=== PATIENT | male | born 1955 | race Caucasian/White ===

== ENCOUNTER 2020-12-10 03:39 | Emergency (ER) | payer OTHER ==
[2020-12-10 04:36] LABS: Basophils % (Auto) 0.7 % (0.0-1.8); Eosinophils % (Auto) 0.7 % (0.0-4.3); Hematocrit 40.5 % (35.5-45.6); Hemoglobin 13.6 gm/dl (11.8-15.2); Lymphocytes # (Auto) 1.2 K/mm3 (1.2-5.4); Mean Corpuscular HGB Conc 34 % (32-34); Mean Corpuscular Volume 88 fl (84-94); Monocytes # (Auto) 0.4 K/mm3 (0.0-0.8); Monocytes % (Auto) 7.7 % (0.0-7.3); Platelet Count 176 K/mm3 (140-440); Red Cell Distribution Width 14.1 % (13.2-15.2)
--- NOTE | 2020-12-10 04:46 | XRay Report ---
CHEST 1 VIEW INDICATION / CLINICAL INFORMATION: chest pain. COMPARISON: None available. FINDINGS: SUPPORT DEVICES: None. HEART / MEDIASTINUM: No significant abnormality. LUNGS / PLEURA: No significant pulmonary or pleural abnormality. No pneumothorax. ADDITIONAL FINDINGS: Spondylitic change noted throughout the visualized thoracic spine. IMPRESSION: 1. No acute pulmonary or pleural disease. Signer Name: Kimberly Hearn MD Signed: 12/10/2020 4:42 AM Workstation Name: [id number]
--- NOTE | 2020-12-10 04:50 | XRay Report ---
LEFT HIP, 2 VIEWS INDICATION / CLINICAL INFORMATION: sudden onset of pain, no injury. COMPARISON: None available. FINDINGS: The left hip is intact. No fracture or dislocation. There is age-appropriate mild degenerative change within both hips. AP view of the pelvis is unremarkable otherwise. IMPRESSION: No acute osseous or soft tissue abnormality. 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 LEFT SHOULDER 3 VIEWS INDICATION / CLINICAL INFORMATION: sudden onset of pain, no injury. COMPARISON: None available. FINDINGS: Mild degenerative changes are present throughout the left shoulder. No fracture or dislocation. No soft tissue abnormality. IMPRESSION: No acute osseous abnormality. Signer Name: Kimberly Hearn MD Signed: 12/10/2020 4:45 AM Workstation Name: [email or web address]
[2020-12-10 04:56] LABS: Alanine Aminotransferase 40 units/L (7-56); Albumin 3.9 g/dL (3.9-5); BUN/Creatinine Ratio 5; Blood Urea Nitrogen 4 mg/dL (9-20); Calcium 8.8 mg/dL (8.4-10.2); Hemolysis Index 26
== END 2020-12-10 03:48 | disposition left against medical advice (07) ==
LOC: ED 03:39
DX: R07.9 Chest pain, unspecified (principal); Z53.21 Procedure and treatment not carried out due to patient leaving prior to being seen by health care provider
CPT/HCPCS: 36415; 71045; 80053; 84484; 85025; 93005